=== PATIENT | male | born 1965 | race Caucasian/White ===

== ENCOUNTER 2020-05-23 13:40 | Inpatient (IN) ==
[2020-05-23] MEDS ORDERED: CeFAZolin Syr 2,000MG/20 ML 2,000 MG/20 ML SYRINGE IVPB ONE (14:18)
[2020-05-23] MEDS ORDERED: Ringers Solution, Lactated 1,000 ML IVC SCH ×2 (14:30→18:23)
[2020-05-23] MEDS ORDERED: *HR* OxyCODONE Immed Rel 5 MG TABLET PO PRN (14:31)
[2020-05-23] MEDS ORDERED: Acetaminophen IV 1,000 MG/100 ML BAG IVPB ONE (14:31)
[2020-05-23] MEDS ORDERED: *HR* HYDROmorphone PF 0.5 MG/0.5 ML SYRINGE IVP PRN (14:31)
[2020-05-23] MEDS ORDERED: *HR* Meperidine 25 MG/ML SYRINGE IVP PRN (14:31)
[2020-05-23] MEDS ORDERED: Ondansetron 4 MG/2 ML VIAL IVP ONE (14:31)
[2020-05-23] MEDS ORDERED: *HR* FentaNYL (PF) 100 MCG/2 ML VIAL ONE (14:50)
[2020-05-23] MEDS ORDERED: Ropivacaine/PF 0.5% 30 ML VIAL ONE (14:50)
[2020-05-23] MEDS ORDERED: *HR* Midazolam HCl 2 MG/2 ML VIAL ONE (14:50)
[2020-05-23] MEDS ORDERED: ROPIVACAINE/PF/NS 0.25% 1 EACH SYRINGE INTRAART ONE (14:50)
[2020-05-23] MEDS ORDERED: *HR* Succinylcholine 200 MG/10 ML VIAL IVP ONE (14:51)
[2020-05-23] MEDS ORDERED: Dexamethasone 4 MG/ML VIAL ONE (14:51)
[2020-05-23] MEDS ORDERED: *HR* Propofol 200 MG/20 ML VIAL IVP ONE (14:51)
[2020-05-23] MEDS ORDERED: Lidocaine -MPF 4% 5 ML AMPUL ONE (14:51)
[2020-05-23] MEDS ORDERED: Ondansetron 4 MG/2 ML VIAL ONE (14:51)
[2020-05-23] MEDS ORDERED: Lidocaine -MPF 2% 2 ML VIAL ONE (14:51)
[2020-05-23] MEDS ORDERED: Ethanol\\Acetic Acid\\Na Ace\\Ben 1,000 ML IRRIG.SOLN IR ONE (15:54)
[2020-05-23] MEDS ORDERED: Vancomycin 1,000 MG VIAL ONE (16:00)
[2020-05-23] MEDS ORDERED: *HR* PHENYLEPHRINE 1,000 MCG/10 ML SYRINGE IVP ONE (16:04)
[2020-05-23 17:59] LABS: Hematocrit 42.3 % (37.5-50.1); Hemoglobin 14.5 g/dL (12.9-16.9)
[2020-05-23] MEDS ORDERED: *HR* Enoxaparin 30 MG/0.3 ML SYRINGE SQ SCH (18:00)
[2020-05-23] MEDS ORDERED: D5% in Water 1,000 ML IVC PRN (18:23)
[2020-05-23] MEDS ORDERED: Dextrose Gel 15 GM/37.5 ML TUBE PO PRN ×2 (18:23)
[2020-05-23] MEDS ORDERED: Ondansetron 4 MG/2 ML VIAL IVP PRN (18:23)
[2020-05-23] MEDS ORDERED: Sennosides 8.6 MG TABLET PO PRN (18:23)
[2020-05-23] MEDS ORDERED: MOM Conc 10 ML UD.LIQ PO PRN (18:23)
[2020-05-23] MEDS ORDERED: Ibuprofen 200 MG TABLET PO PRN (18:23)
[2020-05-23] MEDS ORDERED: *HR* Dextrose 50 % in Water (Vial) 50 ML VIAL IVP PRN (18:23)
[2020-05-23] MEDS: Insulin LISPRO 300 UNITS/3 ML VIAL SQ SCH (19:34)
[2020-05-23] MEDS: CeFAZolin 2 GM/120 ML BAG IVPB SCH (20:11)
[2020-05-23] MEDS ORDERED: Insulin LISPRO 300 UNITS/3 ML VIAL SQ SCH (21:00)
[2020-05-24] MEDS: CeFAZolin 2 GM/120 ML BAG IVPB SCH (04:35)
[2020-05-24 05:08] LABS: Hematocrit 37.9 % (37.5-50.1)
[2020-05-24 05:18] LABS: BUN/Creatinine Ratio 21 (6-26); Blood Urea Nitrogen 18 mg/dL (6-20); Calcium 8.8 mg/dL (8.6-10.3); Carbon Dioxide 21 mEq/L (23-29); Chloride 103 mEq/L (98-107); Glucose 130 mg/dL (70-105); Osmolality,Calculated 288 (280-300); Potassium 4.7 mEq/L (3.5-5.1); Sodium 137 mEq/L (136-145); eGFR For African Americans > 60 (> 60); eGFR For Non-African Americans > 60 (> 60)
[2020-05-24] MEDS ORDERED: *HR* Enoxaparin 30 MG/0.3 ML SYRINGE SQ SCH (06:00)
[2020-05-24 07:30] VITALS: BP 137/72
[2020-05-24] MEDS: Insulin LISPRO 300 UNITS/3 ML VIAL SQ SCH (08:44)
== END 2020-05-24 11:09 | disposition home or self-care (01) | DRG 483 ==
LOC: SAMDAY 13:40 → 3NENU 17:18
PROVIDERS: ADMIT Orthopaedic Surgery; ATTEND Orthopaedic Surgery